=== PATIENT | female | born 1965 | race Caucasian/White ===

== ENCOUNTER 2016-12-29 08:50 | Emergency (ER) | payer OTHER ==
[~2016-12-29] VITALS: Ht 157.5 cm; Wt 69.1 kg
[2016-12-29 08:56] VITALS: BP 119/80; PULSE 87; RESP 16; O2SAT 96
--- NOTE | 2016-12-29 09:04 | ED.REPORT ---
HPI-Abd Pain F 40 and Over Date of Service Dec 29, 2016 ED Provider: Mrs. Wei is a pleasant 51 year old woman, history of hypothyroidism, and recently identified choledocholithiasis. She presents to schedule a hospital emergency department with the complaint of worsening upper right quadrant abdominal pain with radiation around her torso and her back. She denies any nausea, vomiting, diarrhea. She endorses anorexia secondary to pain and discomfort. No fevers, chills, lightheadedness, dizziness, dysuria. Ultrasound performed 12/16/2016 showed "5 mm filling defect that may represent common duct stone or tumor." Today she said her pain is 7 out of 10 and constant, previously it had waxed and waned, and on the advice of her primary care physician she reported to the emergency department out of concern for infection or complete blockage. Nursing Notes Stated Complaint: STONE IN GALL BLADDER BILE DUCT Chief Complaint: Female Abdominal Pain Nursing Notes Reviewed: Yes Allergies: Coded Allergies: Sulfa (Sulfonamide Antibiotics) (Verified Allergy, Severe, Rash,Itching,, 12/29/16) hydrocodone (Verified Allergy, Severe, Rash,Itching,, 12/29/16) Scheduled Levothyroxine (Levothyroxine) 75 Mcg Tablet 75 MCG PO DAILY Trazodone (Trazodone) 50 Mg Tablet 50 MG PO HS Scheduled PRN oxyCODONE-Acetaminophen 5-325 mg (oxyCODONE-Acetaminophen 5-325 mg) 1 Each Tablet 1 TAB PO Q6H PRN PRN For Pain General Time Seen by MD: 09:04 Chief Complaint Abdominal pain Hx Obtained From: Patient Sudden in Onset?: No Location: : RUQ Associated with: Reports: Anorexia, Back pain Past Medical History Past Medical History Hypothyroidism Gallbladder disease Past Surgical History Cholecystectomy Smoking History Never Smoker Social History Works as a mortgage or loan underwriter Lives with family Alcohol Use: "Social" Drug Use: Denies drug use Ambulatory Status Independent Review of Systems Complete sys rev & neg: except as marked. Physical Exam General: Laying in bed, no apparent distress. Nonjaundiced HEENT: Normocephalic, atraumatic, EOMI grossly, his membranes moist, conjunctiva pink, nonicteric sclera Cardiovascular: Regular rate and rhythm, no clicks murmurs rubs, peripheral pulses 2/4 equal bilaterally Pulmonary: Clear to auscultation bilaterally, no W/R/R. Abdominal: Soft to palpation, bowel sounds present 4, no hepatosplenomegaly. Negative rebound. Tenderness to right upper quadrant, negative Cespedes sign Extremities: No edema appreciated. No tenderness, asymmetry. Neuro: Neurologically grossly intact, strength is equal bilaterally upper and lower extremities. MSK: Able to move extremities on their own volition, strength 5 out of 5 equal bilaterally to upper and lower extremities. Lymphatics: Cervical and axillary nodes were nonpalpable. Vital Signs Vital Signs (First) Date Time Temp Pulse Resp B/P Pulse Ox O2 Delivery O2 Flow Rate FiO2 12/29/16 08:56 36.8 87 16 119/80 96 Room Air Initial VS: Reviewed Interpretation & Diagnostics Lab Results Interpretation Result Diagram: 12/29/16 0915 12/29/16 0915 Test 12/29/16 09:15 12/29/16 09:27 12/29/16 09:35 White Blood Count 6.2th/mm3 (3.8-10.1) Red Blood Count 4.56mil/mm3 (3.90-5.20) Hemoglobin 14.3g/dL (12.0-15.6) Hematocrit 42.1% (35.0-46.0) Mean Corpuscular Volume 92.3fL (81-100) Mean Corpuscular Hemoglobin 31.4pg (27.0-35.0) Mean Corpuscular Hemoglobin Concent 34.0% (32.0-37.0) Red Cell Distribution Width 12.9% (12.3-15.4) Platelet Count 186bil/L (150-400) Neutrophils (%) (Auto) 44.9% (40-74) Lymphocytes (%) (Auto) 42.3% (14-46) Monocytes (%) (Auto) 9.4% (4-12) Eosinophils (%) (Auto) 2.4% (0-5) Basophils (%) (Auto) 0.8% (0-3) Sodium Level 137mEq/L (134-144) Potassium Level 3.9mEq/L (3.5-5.2) Chloride Level 102mEq/L (97-108) Carbon Dioxide Level 20mmol/L (18-29) Blood Urea Nitrogen 16mg/dL (6-24) Creatinine 0.82mg/dL (0.57-1.00) Estimat Glomerular Filtration Rate 106mL/min (>59) Glucose Level 109mg/dL (60-99) Calcium Level 9.4mg/dL (8.5-10.1) Magnesium Level 2.0mg/dL (1.6-2.6) Total Bilirubin 1.8mg/dL (0.0-1.2) Aspartate Amino Transf (AST/SGOT) 18U/L (0-50) Alanine Aminotransferase (ALT/SGPT) 17U/L (0-32) Alkaline Phosphatase 95U/L (25-150) Total Protein 7.8g/dL (6.4-8.4) Albumin 4.7g/dL (3.4-5.0) Lipase 45U/L (13-60) Hold Blue Top Tube Received (Received) Hold Herron Top Tube Received (Received) Hold Urine Received (Received) Lab Results Interpretation: Mildly elevated total bilirubin CT Abd / Pelvis Interpretation MRCP 1. The gallbladder is surgically resected. There is a filling defect in the common hepatic duct/common bile duct junction where the cystic duct stump is. It is probably caused by an artifact rather than an intraluminal stone. Please correlate with serum bilirubin. If there is clinical evidence for bile duct obstruction, ERCP is suggested for further evaluation. 2. Mild prominence of the intrahepatic ducts is probably related to cholecystectomy. 3. Hepatic fatty infiltration. Interpretation / Wet Read by: Interpret - Radiologist US Focused Biliary Impression from abdominal ultrasound form 12/16/2016 1. Status post cholecystectomy. 2. Bile duct is within normal limits in size however it appears to contain a 5 mm filling may represent common duct stone or tumor. Correlation with liver function tests is recommended. If indicated, MRCP suggested. Re-Eval/Medical Decision Med Decision/Clinical Course Patient was evaluated did not have an acute abdomen. She is given symptomatic relief and gastroenterology specialist was consulted. MRCP was performed on their recommendation, there was "artifact" and most likely not a stone per radiology's evaluation and gastroenterology is independent evaluation of the MRCP results. These decisions were discussed with the patient and family, they stated understanding and agreement to follow-up as an outpatient and that further interventions were not necessary at this time. Pain was under control at time of discharge receiving no additional pain medications, she is discharged with instructions for low fat diet, stay well hydrated with water, and only use pain medications as needed. Consultation : Referral / Consult Name: Anup Taylor MD Line Fixer: Will see in office Note: Spoke with Dr. Taylor, suggested MRCP be done today if there is a stone blocking the common bile duct can be intervened on emergently. Following MRCP Dr. Tai reviewed images himself along with the interpretation and agreed that it is most likely not a stone. Instructed patient to follow-up in the gastroenterology clinic for further evaluation. Counseled Regarding: Diagnosis, Lab results, Need for follow-up, When/why to return to ED Discharge & Departure Primary Impression: Colicky epigastric pain Disposition: Home Discharge Condition All VS Reviewed: Yes Condition: Stable Patient Instructions: Low Fat Diet (ED) Additional Instructions: Please follow-up with Dr. Taylor in the next 1-2 days at [facility]. Before your appointment you will need to have lab work done. Please have this done tomorrow morning, this can be done at any [facility] facility, of which there are many in [place] and at [facility]. Please have complete metabolic panel completed tomorrow 12/30/2016 first thing in the morning. Fasting. If you experience any worsening of your pain that is not resolved with pain medication, begin vomiting, having black or bloody diarrhea, or bloody vomit please do not hesitate to return to the emergency department. Please eat a low-fat diet, please see handout. Please stay well hydrated preferably with water. If you experience any lightheadedness, dizziness, chest pain, shortness of breath, please report to the emergency department or call 911 if necessary. Referrals: Anup Taylor MD Attending Statement The patient was seen and examined together with Dr. Escobar on 12/29/2016 and I have added additional information to the note above. copies to: Fabrice Nickerson MD; Anup Taylor MD, Timothy S DO Dec 29, 2016 09:04 Edmond Escobar DO Dec 29, 2016 09:28
[2016-12-29] MEDS ORDERED: Ondansetron 2 mg/mL 2 mL Inj IVPUSH PRN (09:05)
[2016-12-29] MEDS ORDERED: 0.9% Sodium Chloride 1,000 ML IV ONE (09:05)
[2016-12-29] MEDS ORDERED: Ketorolac 15 mg/mL Inj IVPUSH ONE (09:05)
[2016-12-29] MEDS ORDERED: TRAZ-115 PO (09:18)
[2016-12-29] MEDS ORDERED: LEVO75TA4 PO (09:18)
[2016-12-29] MEDS: HYDROmorphone 0.5 mg/0.5 mL iSecure Syringe IVPUSH PRN ×2 (09:31→12:18)
[2016-12-29 09:33] LABS: BASOPHILS % (AUTO) 0.8 % (0-3); EOSINOPHILS % (AUTO) 2.4 % (0-5); MONOCYTES % (AUTO) 9.4 % (4-12); Mean Corpuscular Hemoglobin 31.4 pg (27.0-35.0); Mean Corpuscular Volume 92.3 fL (81-100); NEUTROPHILS % (AUTO) 44.9 % (40-74); Platelet Count 186 bil/L (150-400)
--- NOTE | 2016-12-29 14:03 | DRSVH ---
PROCEDURE: MR ABDOMEN MRCP INDICATIONS: choledocholithiasis eval. TECHNIQUE: Coronal HASTE through the abdomen, axial 2-D FLASH in- and [id number], and breath-hold T2 FSE with fat saturation through the biliary system and pancreas. Oblique coronal and axial thin-slice HASTE, radial thick-slab HASTE centered on the extrahepatic bile ducts. Intravenous secretin: Not requested. COMPARISON: [facility], [place], ABDOMEN/PELVIS WITH CONTRAST, 12/03/2009, 9:05. [facility], [place] , ABDOMEN COMPLETE, 12/16/2016, 8:16. FINDINGS: Image quality: Excellent. Pancreas and biliary system: Gallbladder is surgically absent. The intra-hepatic biliary ducts is no n-dilated. The common bile duct is prominent in caliber measuring 8 mm. There is a filling defect in the common hepatic duct/common bile duct junction at site of the cystic duct stump. Pancreas is normal in morphology, without adjacent soft tissue edema. Pancreatic duct is normal in c aliber. No pancreatic duct divisum. Other solid organs: Liver and spleen are normal in size. No adrenal nodules. Both kidneys are norm al in size, without hydronephrosis. Nodes and vessels: No retroperitoneal or mesenteric adenopathy by size criteria. Aorta and inferior vena cava are normal in size. Bowel and peritoneum: Unenhanced bowel loops are normal in caliber. No free fluid. Lung bases: No basal pleural effusions. Heart size is normal. Bones and soft tissues: No ventral hernias. Bone marrow is of normal overall signal. IMPRESSION: 1. The gallbladder is surgically resected. There is a filling defect in the common hepatic duct/commo n bile duct junction where the cystic duct stump is. It is probably caused by an artifact rather than an intraluminal stone. Please correlate with serum bilirubin. If there is clinical evidence for gifty e duct obstruction, ERCP is suggested for further evaluation. 2. Mild prominence of the intrahepatic ducts is probably related to cholecystectomy. 3. Hepatic fatty infiltration. Dictated by: Chary Sosa M.D. on 12/29/2016 at 13:38 Approved by: Chary Sosa M.D. on 12/29/2016 at 14:02
[2016-12-29 14:11] VITALS: BP 94/47; PULSE 64; RESP 16; O2SAT 97
[2016-12-29] MEDS ORDERED: OXYC1TAB24 PO (14:44)
== END 2016-12-29 15:06 | disposition home or self-care (01) ==
LOC: SED 08:50
DX: R10.13 Epigastric pain (principal); Z88.2 Allergy status to sulfonamides; Z88.5 Allergy status to narcotic agent
CPT/HCPCS: 36415; 74181; 80053; 81025; 83690; 83735; 85025; 96374; 96375; 96376; 99285; J1170; J1885; J2405; J7030

== ENCOUNTER 2017-01-03 14:48 | Day surgery (SDC) | payer OTHER ==
[2017-01-03] VITALS (10 sets, daily range): BP systolic 101–134; BP diastolic 50–75; PULSE 51–72; RESP 15–17; O2SAT 97–100
[~2017-01-03] VITALS: Ht 165.1 cm; Wt 68.0 kg
[~2017-01-03 14:48] MED LIST: LEVO75TA4 PO; Lactated Ringer's 1,000 ML IV ONE; OXYC1TAB24 PO; TRAZ-115 PO
[2017-01-03] MEDS ORDERED: Ondansetron 2 mg/mL 2 mL Inj ONE (14:49)
[2017-01-03] MEDS ORDERED: Propofol 10,000 mCg/mL 20 mL Inj ONE (14:49)
[2017-01-03] MEDS ORDERED: Dexamethasone 4 mg/mL Inj ONE (14:49)
[2017-01-03] MEDS ORDERED: Rocuronium 10 mg/mL 5 mL Inj ONE (14:49)
[2017-01-03] MEDS ORDERED: fentaNYL-PF 50 mCg/mL 2 mL Inj ONE (14:49)
[2017-01-03] MEDS ORDERED: fentaNYL-PF 50 mCg/mL 2 mL Inj IVPUSH PRN (15:35)
[2017-01-03] MEDS ORDERED: Phenylephrine 10,000 mCg/mL Inj IVPUSH PRN (15:35)
[2017-01-03] MEDS ORDERED: HYDROmorphone 1 mg/mL Inj IVPUSH PRN (15:35)
[2017-01-03] MEDS ORDERED: Lactated Ringer's 500 ML IV PRN (15:35)
[2017-01-03] MEDS ORDERED: Labetalol 5 mg/mL 4 mL Inj IV PRN (15:35)
[2017-01-03] MEDS ORDERED: MetoCLOpramide 5 mg/mL 2 mL Inj IVPUSH PRN (15:35)
[2017-01-03] MEDS ORDERED: EPHEDrine Sulfate 50 mg/mL Inj IVPUSH PRN (15:35)
[2017-01-03] MEDS ORDERED: Lactated Ringer's 1,000 ML IV SCH (15:35)
[2017-01-03] MEDS ORDERED: Ondansetron 2 mg/mL 2 mL Inj IVPUSH PRN (15:35)
[2017-01-03] MEDS ORDERED: Atropine 0.4 mg/mL Inj IVPUSH PRN (15:35)
--- NOTE | 2017-01-03 16:02 | PCM.HPANE ---
Patient Data Surgeon Admitting Provider: Attending Provider:Anup Taylor MD Primary Care Physician:Fabrice Nickerson MD Other Provider:[facility] Reason for Visit Choledocholithiasis Ht/WT & BMI Body Mass Index Allergies Coded Allergies: Sulfa (Sulfonamide Antibiotics) (Verified Allergy, Severe, Rash,Itching,, 01/03/17) hydrocodone (Verified Allergy, Severe, Rash,Itching,, 01/03/17) venlafaxine (Verified Allergy, Unknown, 01/03/17) Past Anesthesia History Anesthesia History: Denies:: Abnormal Airway, Anesthesia Reactions, Difficult Intubation, Fam Anesthesia Reaction, Fam Malignant Hypertherm, Malignant Hyperthermia Diabetes History Hx Diabetes?: No MRSA MRSA: No Medications Hypertension Medication: No Home Meds Incl Beta Irina: No Active Scripts oxyCODONE-Acetaminophen 5-325 mg 1 Each Tablet1 Tab PO Q6H PRN For Pain #8 TABLET Prov:Edmond Escobar DO 12/29/16 Reported Medications Levothyroxine 75 Mcg [id number] Mcg PO DAILY 12/29/16 Trazodone 50 Mg [id number] Mg PO HS 12/29/16 History HEENT History: Denies:: Abnormal Airway Cataracts Difficult Intubation Dysphagia Glaucoma Hearing Problem Sinus Problem TMJ Hx of Heart Problems?: No Cardiovascular History: Denies:: Congestive Heart Failure Hypertension Hx of Respiratory Problem?: No Respiratory History: Denies:: Tuberculosis Hx Neurologic Problems?: No Hx of GI Problems?: No Hx of Problems?: No Hx Musculoskeletal Problems?: No Hx Surgeries?: Yes (antonio) Hx Alcohol Use: Yes (occasional) Smoking Status: Former Smoker Never Smoker Have You Smoked inLast 12 mo: No Stop/Bang KARL Risk Assessment: Low Risk, <3 Yes Risk Assessment Category Category 1A: Patient has history of documented sleep apnea, and HAS NOT received any narcotic, sedative or anesthesia administration during this stay. Category 1B: Patient has history of documented sleep apnea, and HAS received any narcotic , sedative or anesthesia administration during this stay Category 2: Patient has SUSPECTED Obstructive Sleep Apnea, and HAS received any narcotic , sedative or anesthesia administration during this stay. Category 3: Patient has SUSPECTED Obstructive Sleep Apnea and HAS NOT received narcotic, sedative or anesthesia administration during this stay. Category 4: Outpatient in Procedural Areas with known sleep apnea or who screen positive for High Risk via the STOP/BANG questionnaire. Exam Exam Vital Signs Vital Signs Date Time Temp Pulse Resp B/P Pulse Ox O2 Delivery O2 Flow Rate FiO2 01/03/17 15:31 66 16 106/54 99 Room Air General Appearance: Alert, Oriented X3, Cooperative, No Acute Distress HEENT/AIRWAY: MP 2 Lungs: Clear to Auscultation, Normal Air Movement Heart: Exam Unremarkable, Regular Rate/Rhythm, No Murmurs/Rubs/Gallops Plan Impression Patient chart reviewed, patient interviewed and anesthestic plan with risks, benefits, and alternatives discussed, and informed consent obtained. ASA Physical Status: ASA2 Mod Systemic Disease Anesthetic Plan: GA Bene/Risks/Altern/Consents: Yes HP Complete Prior to Induction: Yes Arash Manley MD Jan 03, 2017 15:35
--- NOTE | 2017-01-03 17:24 | PCM.ANEP1 ---
Post Anesthesia Phase 1 PACU Phase 1 Assessment Vital Signs Vital Signs Date Time Temp Pulse Resp B/P Pulse Ox O2 Delivery O2 Flow Rate FiO2 01/03/17 15:31 66 16 106/54 99 Room Air Anesthetic Administered: GA Level of Alertness: Awake, talking SMILEY's with Equal Strength: Yes Pain: No Nausea or Vomiting: No Oxygen Delivery: Nasal Cannula Lungs: Clear to Auscultation, Normal Air Movement Summary VSS, see LOAN WORKOUT OFFICER notes Arash Manley MD Jan 03, 2017 17:24
--- NOTE | 2017-01-03 17:26 | PCM.ANEP2 ---
Post Anesthesia Evaluation ASA/CMS Post Anesthesia VS in Patient's Normal Range?: Yes Resp Stable; Airway Patent?: Yes CV Function & Hydration Stable: Yes Mental Status Recovered?: Yes Pain control Satisfactory?: Yes N/V Control Satisfactory?: Yes Arash Manley MD Jan 03, 2017 17:26
--- NOTE | 2017-01-04 01:10 | ENDO ---
[address] [address] ENDOSCOPY PROCEDURE PATIENT: PASCALE TYSON : 1965 MR#: [id number] ADMIT: 01/03/2017 JOB ID: [id number] DATE OF PROCEDURE: 01/03/2017 PROCEDURE: Endoscopic retrograde cholangiopancreatography with biliary sphincterotomy and ductal clearance. INDICATIONS: A 51-year-old female with some symptoms of right upper quadrant discomfort, mildly abnormal liver chemistries, and an equivocal finding MRCP. Further evaluation with ERCP is pursued. EQUIPMENT: Standard duodenoscope. SEDATION: General anesthesia with endotracheal intubation as provided by Dr. Arash Manley. COMPLICATIONS: None identified. PROCEDURE INFORMATION: After the risks and benefits were explained, written and verbal informed consent was obtained. The patient was placed into the prone position following anesthesia and intubation. The scope was introduced into the mouth through the bite block and advanced under indirect visualization to stomach. From there, the scope was guided into the second portion of the duodenum. The major papilla was identified and appeared morphologically normal. There was a normal amount of bile seen emanating from the biliary tree staining the mucosa and both the stomach and duodenum quite appropriately. Using an Olympus 20 mm sphincterotome preloaded with an 0.025 straight short VisiGlide guidewire, we selectively cannulated the biliary tree and the wire was advanced deep into the intrahepatics. The sphincterotome was introduced and cholangiogram suggested the possibility of filling defects in a similar location to what was described at the MRCP. We elected to pursue biliary sphincterotomy. This was performed over the wire and appeared quite generous and adequate with free-flowing vines bile. The sphincterotome was swapped out for an 8.5 mm below balloon stone extraction tipped catheter with injection port below the balloon. The sphincterotomy was tested at 8.5 mm setting and easily came through without any resistance. No stone debris identified. The duct was swept several times, and we again did not identify any significant stone debris. I was able to inflate the balloon above the level of the cystic duct takeoff and above the area where the previously placed lap antonio clips had been secured. These appeared to be impinging upon the bile duct, but certainly not obstructing it. At the 8.5 mm setting, we were easily able to drag the balloon down past this area and clearly appeared to slow up the balloon slightly secondary to a pressure exerting effect from the clips themselves. It should be noted there was no significant upstream dilatation apparent. Numerous cholangiograms were obtained with the same result. The balloon was slowed up at the level of the cholecystectomy clips, but not impeded to pass all the way through the sphincterotomy. Each time we did this we did not uncover any significant stone debris. The biliary tree appeared to drain quite easily of contrast and bile. We thereafter elected to terminate the procedure. The wire and catheter were removed. The scope was brought back into the stomach. Excess air and fluid removed. The scope was ultimately withdrawn from the patient, who seemed to tolerate the procedure quite well. A 100 mg indomethacin suppository was placed to prophylax against post ERCP pancreatitis. The patient was extubated and transferred to the PACU in stable condition. FINDINGS: See above. Biliary sphincterotomy accomplished on what appeared to be a fairly normal-appearing papilla. No significant ductal dilatation, perhaps in the neighborhood of about 8.5-9 mm in the proximal biliary tree. This smoothly tapered down to perhaps about 5-6 mm in the distal tree. The course of the biliary apparatus was a little angulated and appeared to possibly be a consequence of the cholecystectomy clips which seem to impinge upon the common hepatic duct. They, however, were not blocking, and I could inflate the balloon at that 8.5 mm setting and sweep from high up and down through the papilla. ENDOSCOPIC DIAGNOSES: 1. Successful biliary sphincterotomy. 2. Cholecystectomy clips with mild biliary tree impingement, possibly creating a foreign body reaction at the level of the impingement. Cholangiographically today, and at MRCP, this gave the suggestion of retained stone, but I could not see any stone during our sweeping efforts and none was ejected into the duodenum today. RECOMMENDATIONS: 1. The patient will be allowed to recover in PACU and it would be expected she be discharged home this afternoon. 2. N.p.o. for five hours and then clear liquids this evening, advancing to her usual diet tomorrow morning. 3. Repeat liver chemistries in about 7-10 days. 4. Follow up in my office in the next 3-4 weeks.
--- NOTE | 2017-01-04 08:11 | DRSVH ---
PROCEDURE: X-RAY E.R.C. BILIARY DUCTS ([id number]) INDICATIONS: CHOLEDOCHOLITHIASIS TECHNIQUE: Fluoroscopic spot films were acquired by the gastroenterology service during ERCP procedu re. COMPARISON: [facility], MR, MR ABD MRCP, 12/29/2016, 11:43. [facility], [place], ABDOMEN COMPLETE, 12/16/2016, 8:16. FINDINGS: The extrahepatic bile duct has been cannulated and contrast media instilled opacifying the bile duct which is normal in caliber. A sweeping balloon catheter is noted and no definite intralumi nal filling defects are seen at time of imaging. No extravasation of contrast media. IMPRESSION: Sweeping balloon catheter is present otherwise the bile duct is normal in caliber and no definite intraluminal filling defects visualized at time of imaging. Correlate with real-time examin ation. Dictated by: Kirill JEREZ Interpreted: Sandee Palencia MD on 01/04/2017 at 8:09 Transcribed by: ADEOLA on 01/04/2017 at 8:11 Approved by: Sandee Palencia M.D. on 01/04/2017 at 21:56
== END 2017-01-03 23:59 | disposition home or self-care (01) ==
LOC: END 14:48
PROVIDERS: ATTEND Internal Medicine Gastroenterology
DX: R10.11 Right upper quadrant pain (principal); R79.89 Other specified abnormal findings of blood chemistry; Z87.891 Personal history of nicotine dependence
CPT/HCPCS: 43262; 74328; J1100; J2250; J2405; J3010; J7120; Q9967